=== PATIENT | male | born 1985 | race Caucasian/White ===

== ENCOUNTER 2020-09-10 21:46 | Emergency (ER) | payer BC, SELFPAY ==
[2020-09-10 21:58] VITALS: BP 144/107; PULSE 97; RESP 20; TEMP 36.9; O2SAT 96
--- NOTE | 2020-09-10 22:29 | ED.ANXIETY ---
HPI - Anxiety General Chief Complaint: Anxiety Stated Complaint: Syncope Time Seen by Provider: 09/10/20 22:10 Source: patient Mode of arrival: ambulatory Limitations: no limitations History of Present Illness HPI narrative: Patient presents to the ED with his girlfriend crying, stressed and anxious. Denying any suicidal or homicidal ideation. Patient got out of the [facility] June 2020. Patient reported that he is not successful in his life always getting in trouble, and intermittent spells of hyperventilation. Patient used to be on a lot of medication for psych disorder including lithium, Geodon, Depakote, trazodone, risperidone and others. Patient quit taking this medication for 2 years because make him gain weight, making him act funny and to behave different. Patient does not like to go back on this medication again. Currently feels depressed Related Data Allergies Allergy/AdvReac Type Severity Reaction Status Date / Time Penicillins Allergy Mild Unverified 09/18/14 10:54 Review of Systems Review of Systems: Narrative: CONSTITUTIONAL: Denies fever, chills, or sweats. EYES: Denies visual changes, redness, or discharge. ENT: Denies rhinorrhea, congestion, sore throat, or otalgia. CARDIOVASCULAR: Denies chest pain, palpitations, or edema. RESPIRATORY: Denies cough or dyspnea. GASTROINTESTINAL: Denies abdominal pain, nausea, vomiting, or diarrhea. GENITOURINARY: Denies dysuria or hematuria. SKIN: Denies rash or itching. MUSCULOSKELETAL: Denies back pain, joint pain, or myalgia. NEUROLOGIC: Denies headache, numbness, or weakness. PSYCHIATRIC: Depression PMFSH Past Medical History Medical History (Updated 09/10/20 @ 22:45 by Raven Hamilton MD) Depression Drug addict Psychiatric disorder Social History Social History (Updated 09/10/20 @ 22:40 by Raven Hamilton MD) Social History: Patient smokes, using alcohol occasionally denying using drugs. Second hand tobacco smoke exposure: No Exam Narrative: Exam Narrative: General appearance: Well-developed, well-nourished, crying, hyperventilating Skin: Normal color Head: Normocephalic, nontraumatic Eyes: Clear conjunctiva ENT: Oropharynx normal, ears normal, nose normal Neck: Supple, nontender Chest and respiratory: Airway patent, no respiratory distress, no accessory muscle use Heart: Regular rate/rhythm Abdomen: Soft, nontender, no organomegaly, quiet bowel sounds Neurologic: Alert and oriented ?3, [employer] is normal as tested, no gross motor deficit Course Course Emergency Course: Improving Vital Signs Vital signs: Vital Signs Temperature 36.9 C 09/10/20 21:58 Pulse Rate 97 09/10/20 21:58 Respiratory Rate 20 09/10/20 21:58 Blood Pressure 144/107 H 09/10/20 21:58 Pulse Oximetry 96 09/10/20 21:58 Temperature 36.9 C 09/10/20 21:58 Pulse Rate 97 09/10/20 21:58 Respiratory Rate 20 09/10/20 21:58 Blood Pressure 144/107 H 09/10/20 21:58 Pulse Oximetry 96 09/10/20 21:58 MDM - Anxiety MDM Narrative Medical decision making narrative: Anxiety, depression is my concern. Patient is not suicidal or homicidal. The plan to give him Ativan, Zyprexa, and give him the phone number and address for mental [facility] Critical Care Time Critical Care Time Critical Care Time: No Discharge Plan Discharge Clinical Impression: Acute anxiety, Hyperventilation Patient Disposition: Home, Self-Care Condition: Improved Instructions: Anxiety (ED) Additional Instructions: Return if symptoms are worsening , call your family physician for appointment, take Tylenol as as needed for aches and pain, continue home medications. Follow-up/Referrals: [facility]
[2020-09-10] MEDS: LORazepam (*CRX) 0.5 MG TABLET 1 MG PO (22:31)
--- NOTE | 2020-09-10 23:00 | PC.NURSE ---
pt calm after meds, aware'
[2020-09-10 23:28] VITALS: BP 124/73; PULSE 74; RESP 16; TEMP 36.8; O2SAT 99
== END 2020-09-10 23:29 | disposition home or self-care (01) ==
PROVIDERS: Emergency Provider Emergency Medicine
DX: F41.9 Anxiety disorder, unspecified (principal); R06.4 Hyperventilation
CPT/HCPCS: 99283; A9270

== ENCOUNTER 2021-10-02 02:47 | Emergency (ER) | payer BC, SELFPAY ==
[2021-10-02 02:51] VITALS: BP 153/77; PULSE 121; RESP 20; TEMP 36.7; O2SAT 100
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
[2021-10-02 06:36] LABS: Add Urine Microscopic? YES; Appearance Urine Clear (Clear); Bacteria Urine Trace /hpf; Bilirubin Urine Negative (Negative); Blood Urine Negative (Negative); Calcium Oxalate Crystals Urine Present /hpf; Color Urine Yellow (Yellow); Glucose Urine UA Negative (Negative); Ketones Urine Negative (Negative); Leukocyte Esterase Ur Negative LEU/UL (Negative); Mucus Urine Rare /lpf; Nitrate Urine Negative (Negative); Protein Urine Negative (Negative); RBC Urine 0-2 /hpf (0-2); Specific Grav Ur 1.025 (1.001-1.035); WBC Urine 0-3 /hpf
[2021-10-02 06:43] LABS: Barbiturate Screen Urine Negative (Negative); Benzodiazepines Screen Urine Negative (Negative)
[2021-10-02 06:47] LABS: Cannabinoid Screen Urine Negative (Negative); Cocaine Screen Urine Negative (Negative); Methadone Screen Urine Negative (Negative); Opiate Screen Urine Negative (Negative); Phencyclidine Screen Urine Negative (Negative)
[2021-10-02 07:10] VITALS: BP 150/80; PULSE 100; RESP 20; TEMP 36.7; O2SAT 98
[2021-10-02 07:14] LABS: Amphetamine Screen Urine Positive (Negative)
[2021-10-02 14:14] LABS: SARS-CoV-2 RNA PCR Positive
== END 2021-10-02 07:10 | disposition home or self-care (01) ==
PROVIDERS: Emergency Provider Emergency Medicine
DX: U07.1 COVID-19 (principal); J06.9 Acute upper respiratory infection, unspecified; F17.200 Nicotine dependence, unspecified, uncomplicated
CPT/HCPCS: 80307; 81001; 99283; C9803; U0003; U0005